=== PATIENT | female | born 1975 | race Caucasian/White ===

== ENCOUNTER 2021-04-08 14:31 | Outpatient (CLI) | payer MEDICAID ==
[~2021-04-08] VITALS: Ht 170.2 cm; Wt 79.0 kg
[2021-04-08 15:12] VITALS: BP 115/71
[2021-04-08 15:14] LABS: MICROSCOPIC INDICATED
[2021-04-08 15:23] LABS: AMPHETAMINE SCREEN, URINE Negative (Negative); BARBITURATE SCREEN, URINE Negative (Negative); BENZODIAZEPINE SCREEN, URINE Negative (Negative); CANNABINOID SCREEN, URINE Negative (Negative); COCAINE SCREEN, URINE Negative (Negative); METHADONE SCREEN, URINE Negative (Negative); OPIATE SCREEN, URINE Negative (Negative)
[2021-04-08 15:27] LABS: BASOPHILS % (AUTO) 1 % (0-1); EOSINOPHILS % (AUTO) 1 % (1-7); LYMPHOCYTES % (AUTO) 19 % (22-44); MEAN CORPUSCULAR HEMOGLOBIN 32.1 pg (27.0-34.8); MEAN CORPUSCULAR HGB CONC 33.7 g/dL (32.4-35.8); MEAN PLATELET VOLUME 9.2 fL (7.4-10.4); MONOCYTES % (AUTO) 11 % (2-9); NEUTROPHILS % (AUTO) 69 % (42-75); PLATELET COUNT 178 x10^3/uL (130-400); RED BLOOD COUNT 4.01 x10^6/uL (3.82-5.3); RED CELL DISTRIBUTION WIDTH 14.5 % (9.6-15.2)
[2021-04-08 15:29] LABS: MD NO
== END 2021-04-08 16:30 | disposition home or self-care (01) ==
LOC: LDOP 14:31
PROVIDERS: ATTEND Obstetrics & Gynecology
DX: O09.523 Supervision of elderly multigravida, third trimester (principal); O46.93 Antepartum hemorrhage, unspecified, third trimester; Z3A.35 35 weeks gestation of pregnancy
CPT/HCPCS: 36415; 59025; 76815; 80307; 81001; 85025; 86592; 86762; 86850; 86900; 87086; 87340; 87806; G0475

== ENCOUNTER 2021-05-03 15:31 | Emergency (ER) | payer MEDICAID ==
[~2021-05-03] VITALS: Ht 175.3 cm; Wt 84.6 kg
[2021-05-03 15:33] VITALS: BP 113/72
--- NOTE | 2021-05-03 15:35 | NUR ---
NAX1
--- NOTE | 2021-05-03 15:52 | NUR ---
L&D TO EVAL PT SOON THEY CAN (PER SOLO)
--- NOTE | 2021-05-03 16:30 | NUR ---
PT AMBULATORY TO ROOM 5 W/ C/O ABSCESS TO L SIDE HEAD STARTED 4 MONTHS AGO AND HAS INCREASED IN SIZE SINCE THEN. PT STATES INCREASED PAIN AND AT TIMES IQBAL FROM THE PAIN. SATES SHE WAS TOLD BY HER OBGYN TO COME IN. DENIES ANY VB/CRAMPING. STATES BABY MOVES. NISSA ALGORITHM DEVELOPER IN L&D NOTIFIED THAT PT IS IN ROOM 5 AND NEEDS HEART TONES.
--- NOTE | 2021-05-03 17:11 | NUR ---
SPOKE W/ TAURUS IN L&D WHO STATES THEY CURRENTLY DO NOT HAVE SOMEONE TO COME DOWN TO PERFORM HEART TONES ON PT. SEBASTIAN, [employer] INSTRUMENTS INSPECTOR NOTIFIED.
--- NOTE | 2021-05-03 17:22 | NUR ---
AIRAM SIMS FROM L&D AT BEDSIDE PERFORMING FHT.
== END 2021-05-03 17:42 | disposition home or self-care (01) ==
LOC: ED 16:01
DX: O99.712 Diseases of the skin and subcutaneous tissue complicating pregnancy, second trimester (principal); L98.9 Disorder of the skin and subcutaneous tissue, unspecified; Z3A.37 37 weeks gestation of pregnancy
CPT/HCPCS: 99281

== ENCOUNTER 2021-05-05 06:19 | Inpatient (IN) | payer MEDICAID ==
[~2021-05-05] VITALS: Ht 175.3 cm; Wt 85.0 kg
[2021-05-05] MEDS ORDERED: FENTANYL PF 100 MCG/2ML ONE (07:22)
[2021-05-05] MEDS ORDERED: CLINDAMYCIN PMX 900MG/50ML 50 ML IVPB ONE (08:00)
[2021-05-05] MEDS ORDERED: METOCLOPRAMIDE 5 MG/ML, 2ML IV ONE (08:00)
[2021-05-05] MEDS ORDERED: LACTATED RINGERS 1,000 ML IV SCH (08:00)
[2021-05-05] MEDS ORDERED: CALCIUM CARBONATE 500 MG TAB.CHEW PO PRN (08:00)
[2021-05-05] MEDS ORDERED: LACTATED RINGERS 1,000 ML IVBOLUS ONE (08:00)
[2021-05-05] MEDS ORDERED: ONDANSETRON 2MG/ML, 2ML IVPush ONE (08:00)
[2021-05-05 08:11] LABS: BASOPHILS % (AUTO) 1 % (0-1); EOSINOPHILS % (AUTO) 0 % (1-7); LYMPHOCYTES % (AUTO) 10 % (22-44); MEAN CORPUSCULAR HEMOGLOBIN 32.4 pg (27.0-34.8); MEAN CORPUSCULAR HGB CONC 34.6 g/dL (32.4-35.8); MONOCYTES % (AUTO) 10 % (2-9); NEUTROPHILS % (AUTO) 79 % (42-75); PLATELET COUNT 148 x10^3/uL (130-400); RED BLOOD COUNT 3.62 x10^6/uL (3.82-5.3); RED CELL DISTRIBUTION WIDTH 14.7 % (9.6-15.2)
[2021-05-05] MEDS ORDERED: PLEASE ENTER HEIGHT AND WEIGHT MC SCH (08:30)
[2021-05-05] MEDS ORDERED: FENTANYL PF 100 MCG/2ML IVPush PRN (08:30)
[2021-05-05] MEDS ORDERED: NEWBORN KIT ONE (10:40)
[2021-05-05] MEDS ORDERED: OXYTOCIN 30U/ 0.9% NaCL 500ML 0 ML ONE (10:40)
[2021-05-05] MEDS ORDERED: PROMETHAZINE 25 MG/ML, 1ML ONE (12:11)
[2021-05-05] MEDS ORDERED: PROMETHAZINE 25 MG/ML, 1ML IM ONE (12:30)
[2021-05-05] MEDS ORDERED: MEPERIDINE/PF 50 MG/ML IM ONE (12:30)
== END 2021-05-05 12:40 | disposition home or self-care (01) | DRG 565 ==
LOC: LDOP 06:19 → LDIP 07:43
PROVIDERS: ADMIT Obstetrics & Gynecology; ATTEND Obstetrics & Gynecology
DX: O47.1 False labor at or after 37 completed weeks of gestation (principal); Z20.822 Contact with and (suspected) exposure to COVID-19; Z3A.37 37 weeks gestation of pregnancy; Z80.42 Family history of malignant neoplasm of prostate; Z82.49 Family history of ischemic heart disease and other diseases of the circulatory system; Z88.0 Allergy status to penicillin
CPT/HCPCS: 36415; 59025; 85025; 86592; 86850; 86900; 87635; 96360; 96361; G0378; J2175; J3010; J7120

== ENCOUNTER 2021-05-06 01:55 | Inpatient (IN) | payer MEDICAID ==
[~2021-05-06] VITALS: Ht 175.3 cm; Wt 85.0 kg
[2021-05-06 02:20] VITALS: BP 114/65
[2021-05-06] MEDS ORDERED: NEWBORN KIT ONE (03:39)
[2021-05-06] MEDS ORDERED: OXYTOCIN 30U/ 0.9% NaCL 500ML 500 ML ONE (03:41)
[2021-05-06] MEDS ORDERED: SODIUM CITRATE/CITRIC ACID 15 ML UDC ONE (03:45)
[2021-05-06] MEDS ORDERED: METOCLOPRAMIDE 5 MG/ML, 2ML ONE (03:45)
[2021-05-06] MEDS ORDERED: LACTATED RINGERS 1,000 ML IVBOLUS ONE (04:00)
[2021-05-06] MEDS ORDERED: METOCLOPRAMIDE 5 MG/ML, 2ML IV ONE (04:00)
[2021-05-06] MEDS ORDERED: SODIUM CITRATE/CITRIC ACID 30 ML UDC PO ONE (04:00)
[2021-05-06 04:21] LABS: BASOPHILS % (AUTO) 1 % (0-1); EOSINOPHILS % (AUTO) 1 % (1-7); LYMPHOCYTES % (AUTO) 16 % (22-44); MEAN CORPUSCULAR HEMOGLOBIN 32.3 pg (27.0-34.8); MEAN CORPUSCULAR HGB CONC 34.8 g/dL (32.4-35.8); MEAN PLATELET VOLUME 10.1 fL (7.4-10.4); MONOCYTES % (AUTO) 11 % (2-9); NEUTROPHILS % (AUTO) 71 % (42-75); PLATELET COUNT 142 x10^3/uL (130-400); RED BLOOD COUNT 3.62 x10^6/uL (3.82-5.3); RED CELL DISTRIBUTION WIDTH 14.4 % (9.6-15.2)
[2021-05-06] MEDS ORDERED: AZITHROMYCIN 500 MG in SODIUM CHLORIDE 0.9% 250 ML IV ONE (04:30)
[2021-05-06] MEDS ORDERED: FENTANYL PF 100 MCG/2ML ONE ×2 (04:37→04:39)
[2021-05-06] MEDS ORDERED: HYDROmorphone 2 MG/ML, 1ML ONE (04:37)
[2021-05-06] MEDS ORDERED: CEFAZOLIN 1,000 MG ONE (04:37)
[2021-05-06] MEDS ORDERED: OXYTOCIN 10 UNITS/ML, 1ML ONE (04:37)
[2021-05-06] MEDS ORDERED: ONDANSETRON 2MG/ML, 2ML ONE (04:37)
[2021-05-06] MEDS ORDERED: FENTANYL PF 100 MCG/2ML IVPush ONE (05:00)
[2021-05-06] MEDS ORDERED: EPHEDRINE 50 MG/ML, 1ML ONE (06:13)
[2021-05-06] MEDS ORDERED: MORPHINE SULFATE 4 MG/ML, 1ML IVPush PRN (07:30)
[2021-05-06] MEDS ORDERED: CALCIUM CARBONATE 500 MG TAB.CHEW PO PRN (07:30)
[2021-05-06] MEDS: LACTATED RINGERS 1,000 ML IV SCH ×5 (07:30→23:30)
[2021-05-06] MEDS ORDERED: SIMETHICONE 80 MG CHEW TAB PO PRN (07:30)
[2021-05-06] MEDS: ACETAMINOPHEN 500 MG TABLET PO SCH ×3 (07:30→19:49)
[2021-05-06] MEDS ORDERED: MISOPROSTOL 200 MCG TABLET PR PRN (07:30)
[2021-05-06] MEDS: OXYTOCIN 30U/ 0.9% NaCL 500ML 500 ML IV SCH ×2 (07:30→17:30)
[2021-05-06] MEDS ORDERED: ONDANSETRON 2MG/ML, 2ML IV PRN (07:30)
[2021-05-06] MEDS ORDERED: BISACODYL 10 MG SUPP PR PRN (07:30)
[2021-05-06] MEDS ORDERED: OXYcodone IR 5MG TABLET PO PRN (07:30)
[2021-05-06] MEDS ORDERED: morphine SULFATE 10 MG/ML, 1ML IM PRN (07:30)
[2021-05-06] MEDS ORDERED: OXYcodone 5 MG/5 ML ORAL.SOL UDC ONE (07:50)
[2021-05-06] MEDS: KETOROLAC 30 MG/1 ML IV SCH ×3 (07:56→19:49)
[2021-05-06] MEDS ORDERED: OXYcodone 5 MG/5 ML ORAL.SOL UDC PO PRN ×2 (08:00→09:00)
[2021-05-06 08:30] VITALS: BP 103/67
[2021-05-06] MEDS: PRENATAL VIT/IRON/FA 1 EACH TABLET PO SCH (09:00)
[2021-05-06 13:50] VITALS: BP 99/64
[2021-05-06 13:59] LABS: BASOPHILS % (AUTO) 1 % (0-1); EOSINOPHILS % (AUTO) 0 % (1-7); LYMPHOCYTES % (AUTO) 14 % (22-44); MEAN CORPUSCULAR HEMOGLOBIN 32.3 pg (27.0-34.8); MEAN CORPUSCULAR HGB CONC 34.3 g/dL (32.4-35.8); MEAN PLATELET VOLUME 9.8 fL (7.4-10.4); MONOCYTES % (AUTO) 12 % (2-9); NEUTROPHILS % (AUTO) 73 % (42-75); PLATELET COUNT 112 x10^3/uL (130-400); RED BLOOD COUNT 2.98 x10^6/uL (3.82-5.3); RED CELL DISTRIBUTION WIDTH 14.4 % (9.6-15.2)
[2021-05-06 19:37] VITALS: BP 97/65
[2021-05-06] MEDS: OXYcodone IR 5MG TABLET PO PRN (22:39)
[2021-05-06 23:25] VITALS: BP 93/57
[2021-05-07] MEDS: ACETAMINOPHEN 500 MG TABLET PO SCH ×4 (01:59→20:07)
[2021-05-07] MEDS: KETOROLAC 30 MG/1 ML IV SCH (01:59)
[2021-05-07] MEDS: OXYTOCIN 30U/ 0.9% NaCL 500ML 500 ML IV SCH ×3 (03:30→23:30)
[2021-05-07] MEDS: LACTATED RINGERS 1,000 ML IV SCH ×6 (03:30→23:30)
[2021-05-07 03:45] VITALS: BP 95/61
[2021-05-07 07:15] VITALS: BP 102/65
[2021-05-07] MEDS: IBUPROFEN 600 MG TABLET PO SCH ×3 (08:47→20:07)
[2021-05-07] MEDS: PRENATAL VIT/IRON/FA 1 EACH TABLET PO SCH (08:47)
[2021-05-07] MEDS: DOCUSATE 100 MG CAPSULE PO PRN ×2 (08:47→20:07)
[2021-05-07] MEDS ORDERED: DIPH,PERTUSS(ACELL),TET VAC/PF NC IM-VACC ONE (17:30)
[2021-05-07 21:50] VITALS: BP 97/63
[2021-05-07] MEDS: OXYcodone IR 5MG TABLET PO PRN (23:44)
[2021-05-08] MEDS: IBUPROFEN 600 MG TABLET PO SCH ×3 (02:03→14:08)
[2021-05-08] MEDS: ACETAMINOPHEN 500 MG TABLET PO SCH ×3 (02:03→14:08)
[2021-05-08 07:52] VITALS: BP 113/82
[2021-05-08] MEDS: PRENATAL VIT/IRON/FA 1 EACH TABLET PO SCH (07:57)
[2021-05-08] MEDS: DOCUSATE 100 MG CAPSULE PO PRN (07:57)
[2021-05-08] MEDS: LACTATED RINGERS 1,000 ML IV SCH ×2 (07:59→09:35)
[2021-05-08] MEDS: OXYTOCIN 30U/ 0.9% NaCL 500ML 500 ML IV SCH (09:35)
[2021-05-08] MEDS ORDERED: IBUP-1222 PO (15:50)
[2021-05-08] MEDS: OXYcodone IR 5MG TABLET PO PRN (16:39)
== END 2021-05-08 16:30 | disposition home or self-care (01) | DRG 540 ==
LOC: LDOP 01:55 → LDIP 03:43 → 2NW 08:25
PROVIDERS: ADMIT Obstetrics & Gynecology; ATTEND Obstetrics & Gynecology
PROC: 10D00Z1 Extraction of Products of Conception, Low, Open Approach (ICD-10-PCS; principal; 2021-05-06)
DX: O34.211 Maternal care for low transverse scar from previous cesarean delivery (principal); Z37.0 Single live birth; Z3A.37 37 weeks gestation of pregnancy; Z80.42 Family history of malignant neoplasm of prostate; Z82.49 Family history of ischemic heart disease and other diseases of the circulatory system; Z88.0 Allergy status to penicillin
CPT/HCPCS: 36415; 85025; 86592; 86850; 86900; 86923; 90715; G0378; J0456; J0690; J1170; J1885; J2405; J3010; J2590; J7050; J7120